=== PATIENT | male | born 1960 | race Caucasian/White ===

== ENCOUNTER → 2025-02-04 08:27 | Outpatient (CLI) | payer OTHER, SELFPAY ==
--- NOTE | ~2025-02-04 | XR_ITS ---
XR chest 2V 02/04/2025 09:17 Indication: Right rib fractures. Right pleural effusion. Procedure: 2 views chest Comparison: No prior studies for comparison. Findings: There are multiple right rib fractures. There are fractures of the right second, third, fourth, fifth, sixth, seventh ribs. Small right pleural effusion/hemothorax. Right basilar atelectasis. Calcified granuloma left mid thorax. Heart size normal. Impression: 1: Multiple right rib fractures some of which are displaced. No pneumothorax. 2: Small right pleural effusion/hemothorax. 3: Right basilar atelectasis. Reviewed, dictated and finalized at location O. Impression: 1: Multiple right rib fractures some of which are displaced. No pneumothorax. 2: Small right pleural effusion/hemothorax. 3: Right basilar atelectasis.
== END ==
PROVIDERS: PCP Nurse Practitioner Family; Referring Provider Nurse Practitioner Family; Visit Provider Nurse Practitioner Family
DX: S22.31XA Fracture of one rib, right side, initial encounter for closed fracture (principal); X58.XXXA Exposure to other specified factors, initial encounter; J90 Pleural effusion, not elsewhere classified; R91.8 Other nonspecific abnormal finding of lung field
CPT/HCPCS: 71046